=== PATIENT | male | born 2000 | race Caucasian/White ===

== ENCOUNTER 2024-06-19 17:36 | Emergency (ER) | payer BC, SELFPAY ==
[2024-06-19] VITALS (14 sets, daily range): BP systolic 112–133; BP diastolic 67–74; PULSE 62–76; RESP 12–20; TEMP 36.9; O2SAT 96–100
--- NOTE | ~2024-06-19 | XR_ITS ---
XR chest 2V Ordering provider: López Conway MD History: 24 years Male with . chest pain x 3 days . Comparison: None. FINDINGS: MEDIASTINUM: The cardiac silhouette is not enlarged. LUNGS: No infiltrates, effusions or pneumothorax. OTHER: No free air under the diaphragm. IMPRESSION: No acute cardiopulmonary pathology. Reviewed, dictated and finalized at location A.
--- NOTE | 2024-06-19 17:40 | ECG_ITS ---
Test Date: 2024-06-19 17:58:57 Measurements Intervals [place] Rate: 67 P: 38 PA: 141 QRS: 46 QRSD: 99 T: -27 QT: 322 QTc: 340 Interpretive Statements SINUS RHYTHM RSR' IN V1 OR V2, PROBABLY NORMAL VARIANT NONSPECIFIC T-WAVE ABNORMALITY No previous ECG available for comparison Electronically Signed On 06-20-2024 10:46:51 CDT by Donis Purcell M.D.
[2024-06-19 18:16] LABS: Basophils Percent Auto 0.2 % (0.2-1.2); Eosinophils Percent Auto 0.5 % (0-4.4); Hematocrit 49.2 % (42.0-52.0); Hemoglobin 16.6 g/dL (14.0-18.0); Immature Granulocyte Absolute 0.03 K/mm3 (0.00-0.031); Immature Granulocyte Percent A 0.4 % (0-0.5); Lymphocytes Absolute Auto 1.73 K/mm3 (0.9-3.2); Lymphocytes Percent Auto 20.7 % (18.3-44.2); Mean Corpuscular HGB Conc 33.7 g/dl (32-36); Mean Corpuscular Hemoglobin 29.6 pg (26-34); Mean Corpuscular Volume 87.9 fl (80-100); Monocytes Absolute Auto 0.5 K/mm3 (0.1-0.6); Monocytes Percent Auto 5.9 % (2.6-8.5); Neutrophils Percent Auto 72.3 % (45.5-73.1); Platelet Count Result 255 k/mm3 (150-375); Red Cell Distribution Width 13.6 % (11.5-14.5); White Blood Count 8.3 K/mm3 (4.5-10.0)
[2024-06-19 18:26] LABS: Alanine Aminotransferase 43 U/L (6-50); Albumin Level 4.6 g/dL (3.5-5.1); Alkaline Phosphatase 64 U/L (38-126); Anion Gap 7 mmol/L (4-12); Aspartate Amino Transferase 29 U/L (17-59); Bilirubin,Total 0.5 mg/dL (0.2-1.3); Blood Urea Nitrogen 15 mg/dL (9-20); Calcium 9.1 mg/dL (8.4-10.2); Carbon Dioxide 30 mmol/L (22-30); Chloride 100 mmol/L (98-107); Estimated CRCL calculation 96 ml/min; Estimated Glomerular Filt Rate > 60; Glucose 114 mg/dL (65-110); Lipase 42 U/L (23-300); Sodium 137 mmol/L (137-145)
[2024-06-19 18:27] LABS: Prothrombin Time 14.1 Seconds (11.1-14.7)
[2024-06-19 18:28] LABS: Partial Thromboplastin Time 31.1 Seconds (22.3-36.8)
[2024-06-19 18:38] LABS: Troponin I < 0.012 ng/mL (0.000-0.034)
--- NOTE | 2024-06-19 19:02 | ED_ITS ---
HPI - Chest Pain General Chief Complaint: Chest Pain Stated Complaint: Chest pain x 3 days, seen at [facility]. Time Seen by Provider: 06/19/24 18:37 Source: patient and family Mode of arrival: ambulatory Limitations: no limitations History of Present Illness HPI narrative: 24-year-old here with the complaints of midsternal chest pain which started 2 days ago. Patient also states that his left arm was numb she which resolved now has pain in the midst sternal area nonradiating. He denies any shortness of breath history. He denies any cough, fever or chills. Patient states that he has heart problems but has never followed with any live ammunition inspector. Onset (ago): day(s) (2) Timing of current episode: constant Onset: during rest Pain location: other (Mid chest) Pain radiation: none Severity: moderate Quality: tightness Relieving factors: nothing Exacerbating factors: nothing Treatment prior to arrival: none Risk Factors Coronary artery disease risk factors: none Thoracic aortic dissection risk factors: none Related Data Allergies Allergy/AdvReac Type Severity Reaction Status Date / Time No Known Allergies Allergy Verified 06/19/24 17:38 Review of Systems 2 Review of Systems: All systems reviewed & are unremarkable except as noted in HPI and below Constitutional: Constitutional: Reports no additional constitutional complaints Eyes: Eyes: Reports no additional eye complaints ENT: Reports system reviewed and no additional complaints, except as documented Cardiovascular: Cardiovascular: Reports as per HPI Respiratory: Respiratory: Reports as per HPI Gastrointestinal: Gastrointestinal: Reports as per HPI Genitourinary: Genitourinary: Reports no additional male genitourinary complaints Musculoskeletal: Musculoskeletal: Reports no additional musculoskeletal complaints Neurologic: Reports system reviewed and no additional complaints, except as documented Exam 2 Narrative: GENERAL: Well-appearing, well-nourished, and in no acute distress. HEAD: Normocephalic, atraumatic. EYES: PERRLA and EOMI. ENT: Nares clear, no rhinorrhea or epistaxis. Mucous membranes moist. NECK: Supple. CHEST: Clear to auscultation. No respiratory distress. HEART: Regular rate and rhythm. No murmur heard. Normal peripheral pulses. ABDOMEN: Soft, nontender, nondistended, normal active bowel sounds. EXTREMITIES: Normal range of motion. No edema. SKIN: Warm, dry, no rash. NEURO: No focal deficits. Alert and oriented x3. PSYCH: Normal mood and affect. Course Course Emergency Course: Patient comfortably resting on the bed in no discomfort informed him about his EKG and cardiac enzymes. Recommended him to follow up with the live ammunition inspector on outpatient basis. Vital Signs Vital signs: Vital Signs Temperature 36.9 C 06/19/24 18:14 Pulse Rate 63 06/19/24 18:14 Respiratory Rate 16 06/19/24 18:14 Blood Pressure 133/67 06/19/24 18:14 Pulse Oximetry 100 06/19/24 18:14 Temperature 36.9 C 06/19/24 18:14 Pulse Rate 62 06/19/24 20:50 Respiratory Rate 14 06/19/24 20:48 Blood Pressure 112/71 06/19/24 20:48 Pulse Oximetry 100 06/19/24 20:48 Oxygen Delivery Room Air 06/19/24 20:47 MDM - Chest Pain Differential Diagnosis Differential diagnosis: Likely pneumothorax, stable angina, costochondritis and chest pain Medical Records Data Attestation: I reviewed the patient's medical records. Lab Data Attestation: I reviewed the patient's lab results. 06/19/24 18:07 06/19/24 18:07 Labs: Lab Results 06/19/24 06/19/24 Range/Units 18:07 20:49 WBC 8.3 (4.5-10.0) K/mm3 RBC 5.60 (4.6-6.20) M/mm3 Hgb 16.6 (14.0-18.0) g/dL Hct 49.2 (42.0-52.0) % MCV 87.9 (80-100) fl MCH 29.6 (26-34) pg MCHC 33.7 (32-36) g/dl RDW 13.6 (11.5-14.5) % Plt Count 255 (150-375) k/mm3 MPV 9.0 (7.4-10.4) fl Immature Gran % (Auto) 0.4 (0-0.5) % Neut % (Auto) 72.3 (45.5-73.1) % Lymph % (Auto) 20.7 (18.3-44.2) % [place] % (Auto) 5.9 (2.6-8.5) % Eos % (Auto) 0.5 (0-4.4) % Baso % (Auto) 0.2 (0.2-1.2) % Lymph # (Auto) 1.73 (0.9-3.2) K/mm3 Barn[place] # (Auto) 0.5 (0.1-0.6) K/mm3 Eos # (Auto) 0.0 (0-0.3) K/mm3 Baso # (Auto) 0.0 (0.0-0.1) K/mm3 Abs Immat Gran (auto) 0.03 (0.00-0.031) K/mm3 Absolute Neuts (auto) 6.0 (1.3-6.7) K/mm3 Absolute Nucleated RBC 0.000 (0.0-0.012) K/mm3 Nucleated RBC % 0.0 (0.0-0.2) % PT 14.1 (11.1-14.7) Seconds INR 1.0 APTT 31.1 (22.3-36.8) Seconds Sodium 137 (137-145) mmol/L Potassium 4.0 (3.4-5.0) mmol/L Chloride 100 (98-107) mmol/L Carbon Dioxide 30 (22-30) mmol/L Anion Gap 7 (4-12) mmol/L BUN 15 (9-20) mg/dL Creatinine 1.02 (0.7-1.3) mg/dL Estim Creat Clear Calc 96 ml/min Estimated GFR > 60 (59 - ) Glucose 114 H (65-110) mg/dL Calcium 9.1 (8.4-10.2) mg/dL Total Bilirubin 0.5 (0.2-1.3) mg/dL AST 29 (17-59) U/L ALT 43 (6-50) U/L Alkaline Phosphatase 64 (38-126) U/L Troponin I < 0.012 < 0.012 (0.000-0.034) ng/mL Total Protein 7.0 (6.3-8.2) g/dL Albumin 4.6 (3.5-5.1) g/dL Lipase 42 (23-300) U/L Imaging Data Radiologist's impression: ITS Impressions Chest X-Ray 06/19/24 18:56 IMPRESSION: No acute cardiopulmonary pathology. ECG Data EKG #1: ECG completion date: 06/19/24 ECG completion time: 17:58 EKG Interpretation: normal rate (67), sinus rhythm, no ectopy, non- specific ST changes, normal QRS and NL axis Discharge Plan Discharge Clinical Impression: Chest pain Qualifiers: Chest pain type: unspecified Qualified Code(s): R07.9 - Chest pain, unspecified Patient Disposition: Home, Self-Care Condition: Stable Instructions: Chest Pain (ED) Patient Language: Syrian Follow-up/Referrals: Hector Fisher DO [Physician] - Alexander Shi MD [Physician] - Time of Disposition: 21:23
--- OUTSIDE RECORDS SUMMARY | 2024-06-19 19:17 | XMS_ITS | Clinical Summary ---
Author Organization [facility] Address [address] [place] [address] Care Team Providers Care Molder Wax Ball Name Role Phone Alexander Shi MD Primary Care Provider [phone] Source Comments [facility],non-owned Affiliates and Associated Physician Practices is amultiple site organization consisting of ambulatory clinics and hospital sitesin [place], [place], [place] and [place]. This disclosure is being madepursuant to the Care Everywhere program and may not contain all information available regarding this patient. Last updated 17.[facility] Medications * Be aware that medications may not be up to date on this document. Alwaysverify current medications with the patient. Medication Sig Dispensed Refills Start Date End Date Status methylphenidate CR 54 MG tablet Take 54 mg by mouth every morning Active cloNIDine (CATAPRES) 0.1 MG tablet Take 0.1 mg by mouth 2 times daily Active fluvoxaMINE (LUVOX) 50 MG tablet Take 50 mg by mouth at bedtime Active Social History Tobacco Use Types Packs/Day Years Used Date Smoking Tobacco: Never Sex and Gender Information Value Date Recorded Sex Assigned at Not on file Gender Identity Not on file Sexual Orientation Not on file Last Filed Vital Signs Vital Sign Reading Time Taken Comments Blood Pressure 102/78 01/20/2016 3:49 PM CDT Pulse 80 01/20/2016 3:49 PM CDT Temperature - - Respiratory Rate 20 01/20/2016 3:49 PM CDT Oxygen Saturation - - Inhaled Oxygen Concentration - - Weight 53.9 kg (118 lb 13.3 oz) 01/20/2016 3:49 PM CDT Height 151.6 cm (4' 11.69 ) 01/20/2016 3:49 PM C DT Body Mass Index 23.45 01/20/2016 3:49 PM CDT Plan of Treatment Health Maintenance Due Date Last Done Comments HIV SCREENING 02/02/2016 HPV VACCINE (1 - Male 3-dose series) 02/02/2016 MENINGOCOCCAL (Group B) VACC INE SHARED DECISION-MAKING (1 of 2 - Standard) 2017 HEPATITIS C SCREENING 01/28/2019 DTAP/TDAP/TD VACCINES (1 - Tdap) 02/02/2020 HEPATITIS B VACCINE (1 of 3 - 19+ 3-dose series) 02/02/2020 COVID-19 VACCINE (1 - 2023-2 5 season) 2023 INFLUENZA VACCINE (#1) 2023 DEPRESSION SCREENING 03/27/2024 ZOSTER VACCINE (1 of 2) 2051 HIB VACCINE Aged Out No longer eligi ble based on patient's age to complete this topic MENINGOCOCCAL GROUPS A/C/Y/W VACCINE Aged Out No longer eligible b ased on patient's age to complete this topic PNEUMOCOCCAL VACCINE Aged Out No long er eligible based on patient's age to complete this topic Care Teams Molder Wax Ball Relationship Specialty Start Date End Date Alexander Shi MD [address] [address] PCP - General Pediatrics 11/23/15
--- OUTSIDE RECORDS SUMMARY | 2024-06-19 19:17 | XMS_ITS | Clinical Summary ---
Author Organization [facility] Address [facility] [place] [address] Care Team Providers Care Corporate Relations Manager Name Role Phone Esme Akhtar MD Primary Care Provider [phone] Allergies No known active allergies Medications triamcinolone 0.5 % creamIndications: Acute maculopapular rash,Acute contact dermatitis Apply sparingly to affected area(s) twice daily. 15 g 10/08/19 20 Active pantoprazole EC 40 MG tabletIndications :Hematemesis with nausea Take 1 tablet (40 mg total) by mouth 2 (two) times daily. 20 tablet 1 12/24/19 21 025 Discontinued Active Problems Problem Noted Date Diagnosed Date Ingrown nail of great toe of right foot 09/24/19 22 Encounters Date Type Department Care Team Description 06/18/2024 10:30 AM CDT - 06/18/2024 11:47 AM CDT Emergency [facility] Emergency Room [id number] [place] [address] Fiona Cabrera MD Chest Pain Discharge Disposition: Home or Self Care (Routine Discharge) 06/18/2024 Travel from Last 3 Months Immunizations Name Administration Dates Next Due Dtap (Generic) 11/09/2006, 3,2001,05/25,2001 Hepatitis A (Generic) 10/20/2008,11/09/2006 Hepatitis B (Generic Peds) 2001,2001 ,2001 Hib (Generic) 10/16/2003, 2,2001,11/2001 MENINGOCOCCAL A C Y&W-135 oligosaccharide (MENVEO) 01/04/2013 MMR (Generic) 11/09/2006,06/03/2002 Meningococcal (Menactra) 12/17/2018 Polio Ipv (Generic) 11/09/2006, 2,2001,11/2001 Td (Decavac) 11/29/2019 Td, Adsorbed, Preservative F ree, Adult Use, Lf Unspecified 11/29/2019 Tdap (Generic) 01/04/2013 Varicella (Generic) 11/09/2006,06/03/2002 Family History Medical History Relation Comments Cancer Mother Hypertension Paternal Grandfather Relation Status Comments Mother Paternal Grandfather Social History Tobacco Use Types Packs/Day Years Used Date Smoking Tobacco: Never Smokeless Tobacco: Never Tobacco Cessation:Counseling Given: Not Answered Alcohol Use Standard Drinks/Week Comments Not Currently 0 (1 standard drink = 0.6 oz pur e alcohol) AUDIT-C Answer Date Recorded Frequency of Alcohol Consumption Never 11/05/2018 Average Number of Drinks Not on file Frequency of Binge Drinking Not on file 10/25 PHQ-2 Answer Date Recorded PHQ-2 Score - If the patient scores above 3, please move on to questions 3-9 0 12/29/2021 Sex and Gender Information Value Date Recorded Sex Assigned at Not on file Legal Sex Male 8:30 PM CDT Gender Identity Not on file Sexual Orientation Not on file Last Filed Vital Signs Vital Sign Reading Time Taken Comments Blood Pressure 132/83 06/18/2024 11:44 AM CDT Pulse 78 06/18/2024 11:44 AM CDT Temperature 36.4 C (97.6 F) 06/18/2024 11:44 AM CDT Respiratory Rate 22 06/18/2024 11:44 AM CDT Oxygen Saturation 98% 06/18/2024 11:44 AM CDT Inhaled Oxygen Concentration - - Weight 79.8 kg (176 lb) 06/18/2024 10:36 AM CDT Height 175.3 cm (5' 9 ) 06/18/2024 10:36 AM CDT Body Mass Index 25.99 06/18/2024 10:36 AM CDT Plan of Treatment Health Maintenance Due Date Last Done Comments HPV Vaccines (1 - Male 3-dose series) 02/02/2016 Meningococcal B Vaccine (1 of 2 - Standard) 2017 Hepatitis C 2019 Annual Physical 12/18/2019 12/17/2018 COVID-19 Vaccine (1 - season) 2023 Influenza Adult (#1) 2023 PHQ-2 (Physician [place]) 03/27/2024 DTaP, Tdap and Td Vaccines (9 - Td or Tdap) 11/28/2029 11/29/2019, 11/29/2019, 01/04/2013, Additional history exists Hepatitis B Vaccines Completed 2001, 2001, 2001 Meningococcal Vaccine Completed 12/17/2018, 013 Pneumococcal Vaccine: Pediatrics (0 to 5 Years) and At-Risk Patients (6 to 64 Years) Aged Out No longer eligible based on patient's age to complete this topic RSV Immunizations Under 20 Months Aged Out No longer eligible based on patient's age to complete this topic Procedures Procedure Name Priority Date/Time Associated Diagnosis Comments XR CHEST PORTABLE STAT 06/18/2024 11:14 AM CDT TROPONIN, QUANT STAT 06/18/2024 10:47 AM CDT CBC W/DIFF AUTOMATED STAT 06/18/2024 10:47 AM CDT COMPREHENSIVE METABOLIC PANEL STAT 06/18/2024 10:47 AM CDT ECG 12-LEAD STAT 06/18/2024 10:35 AM CDT Procedure Note - 06/18/2024 10:35 AM CDTThis note is in progress. [facility] Test Date: 2024-06-18 Pat Name: ZEB CLAUDIO Department: 85 Room: EXAM 404 Gender: Male Motocross Racer: : 2000 Requested By: FIONA CABRERA Order Number: [id number] Reading MD: Measurements Intervals [place] Rate: 95 P: 51 VT: 151 QRS: 46 QRSD: 107 T: -12 QT: 321 QTc: 404 Interpretive Statements SINUS RHYTHM NONSPECIFIC ST & T-WAVE ABNORMALITY No previous ECG available for comparison from Last 3 Months Results * XR CHEST PORTABLE (06/18/2024 11:14 AM CDT) Anatomical Region Laterality Modality Chest Radiographic Kaye ging 06/18/2024 11:2 0 AM CDT Impressions 06/18/2024 11:21 AM CDT IMPRESSION: 1) No radiographic evidence of active disease the chest. Ordered By: FIONA CABRERA Interpreted By: William Roberson MD, 06/18/2024 11:20 AM Narrative 06/18/2024 11:21 [place] [address] Examination: XR CHEST PORTABLE Exam time: 06/18/2024 10:51 AM Clinical history: Chest pain Comparison: 03/20/2023 Technique: AP chest Findings: Heart size within normal limits. Pulmonary vasculature unremarkable. No acute pulmonary parenchymal opacity. No pleural effusion. No hyperinflation. Procedure Note William Roberson MD - 06/18/2024 [place] [address] Examination: XR CHEST PORTABLE Exam time: 06/18/2024 10:51 AM Clinical history: Chest pain Comparison: 03/20/2023 Technique: AP chest Findings: Heart size within normal limits. Pulmonary vasculatureunremarkable. No acute pulmonary parenchymal opacity. No pleural effusion.No hyperinflation. IMPRESSION: 1) No radiographic evidence of active disease the chest. Ordered By: FIONA CABRERA Interpreted By: William Roberson MD, 06/18/2024 11:20 AM us Fiona Cabrera MD GENERAL IMAGING Final Result * (ABNORMAL) COMPREHENSIVE METABOLIC PANEL (06/18/2024 10:47 AM CDT) GLUCOSE 100(H) 70 - 99 MG/DL 06/18/2024 11:09 AM [facility] BUN 10 7 - 18 MG/DL 06/18/2024 11:09 AM [facility] CREATININE S/P/B 1.06 0.7 - 1.3 MG/DL 06/18/2024 11:09 AM [facility] SODIUM S/P/B 141 136 - 145 MMOL/L 06/18/2024 11:09 AM [facility] POTASSIUM S/P/B 4.0 3.5 - 5.1 MMOL/L 06/18/2024 11:09 AM [facility] CHLORIDE S/P/B 102 100 - 108 MMOL/L 06/18/2024 11:09 AM [facility] CO2 33.5(H) 21 - 32 MMOL/L 06/18/2024 11:09 AM [facility] CALCIUM S/P/B 9.4 8.5 - 10.1 MG/DL 06/18/2024 11:09 AM [facility] BILIRUBIN TOTAL S/P/B 0.6 0.2 - 1.2 MG/DL 06/18/2024 11:09 AM [facility] TOTAL PROTEIN S/P/B 7.8 6.4 - 8.2 G/DL 06/18/2024 11:09 AM [facility] ALBUMIN S/P/B 4.5 3.4 - 5.0 G/DL 06/18/2024 11:09 AM [facility] AST 20 15 - 37 U/L 06/18/2024 11:09 AM [facility] ALT 56 16 - 60 U/L 06/18/2024 11:09 AM CDT [facility] ALKALINE PHOSPHATASE S/P/B 77 50 - 136 U/L 06/18/2024 11:09 AM CDT [facility] ANION GAP 5.5 5 - 15 MMOL/L 06/18/2024 11:09 AM CDT [facility] BUN CREATININE RATIO 9.4 6 - 26 06/18/2024 11:09 AM T [facility] A/G RATIO 1.4 1.0 - 2.0 RATIO 06/18/2024 11:09 AM CDT [facility] GFR ESTIMATE >90 >90 ML/MIN/1.7 3 M2 06/18/2024 11:09 AM T [facility] Comment: NOTE: eGFR is not calculated for patients <18 years of age. This is an estimated GFR calculation using the new CKD EPI creatinine equation without race and so does not require a correction factor for race. This estimated GFR should not be used for calculating drug doses. 06/18/2024 10:4 7 AM CDT us Fiona Cabrera MD LABORATORY Final Result [facility] [address] [place] [address], * (ABNORMAL) CBC W/DIFF AUTOMATED (06/18/2024 10:47 AM CDT) WBC 6.08 4.4 - 11.0 x10'3/uL 06/18/2024 10:59 AM CDT [facility] RBC 5.82 4.50 - 5.90 x10'6/uL 06/18/2024 10:59 AM CDT [facility] HGB 17.4 14.0 - 17.5 G/DL 06/18/2024 10:59 AM CDT [facility] HCT 50.5(H) 41.5 - 50.4 % 06/18/2024 10:59 AM CDT [facility] MCV 86.8 80.0 - 96.0 FL 06/18/2024 10:59 AM CDT [facility] MCH 29.9 26.5 - 31.4 PG 06/18/2024 10:59 AM CDT [facility] MCHC 34.5 31.9 - 34.8 G/DL 06/18/2024 10:59 AM CDT [facility] RDW 13.7 12.3 - 14.3 % 06/18/2024 10:59 AM CDT [facility] PLT 262 151 - 353 x10'3/uL 06/18/2024 10:59 AM T [facility] MPV 9.1(L) 9.7 - 11.9 FL 06/18/2024 10:59 AM T [facility] RBC MORPHOLOGY NORMAL 06/18/2024 10:59 AM T [facility] PLT MORPH. NORMAL 06/18/2024 10:59 AM T [facility] WBC MORPHOLOGY NORMAL 06/18/2024 10:59 AM T [facility] LYMPHOCYTES % 20.7 15.8 - 45.0 % 06/18/2024 10:59 AM CDT [facility] NEUTROPHILS % 70.7 42.1 - 71.9 % 06/18/2024 10:59 AM CDT [facility] MONOCYTES % 7.1 5.7 - 12.5 % 06/18/2024 10:59 AM CDT [facility] EOSINOPHILS 0.3 0.0 - 5.6 % 06/18/2024 10:59 AM CDT [facility] BASOPHILS 0.7 0.0 - 1.3 % 06/18/2024 10:59 AM CDT [facility] ABS. NEUTROPHILS 4.30 1.40 - 6.00 x10'3/uL 06/18/2024 10:59 AM CDT [facility] IMMATURE GRANS % 0.5 0.0 - 0.5 % 06/18/2024 10:59 AM CDT [facility] ABS. LYMPHOCYTES 1.26 0.80 - 4.70 x10'3/uL 06/18/2024 10:59 AM CDT [facility] 06/18/2024 10:4 7 AM CDT Fiona Cabrera MD LABORATORY Final Result Performing Organization Address [facility]/ZIP Co de Phone Number [facility] [address] [place] [address], [place] [phone] * TROPONIN, QUANT (06/18/2024 10:47 AM CDT) Pathologist [facility] TROPONIN I HIGH SENSITIVITY 4 0 - 75 ng/L 06/18/2024 11:15 AM CDT [facility] Comment: HIGH DOSES OF BIOTIN, TROPONIN-SPECIFIC AUTOANTIBODIES, AND ANTIBODY THERAPY CONTAINING HAMA MAY INTERFERE WITH THIS TEST RESULT. CORRELATION TO CLINICAL HISTORY AND PRESENTATION RECOMMENDED. 06/18/2024 10:4 7 AM CDT Fiona Cabrera MD LABORATORY Final Result Performing Organization Address City/[facility]/ZIP Co de Phone Number [facility] [address] [place] [address], [place] [phone] from Last 3 Months Insurance [address] [place] [address] * Guarantor: SYSTEM GENERATED Account Type Relation to Patient Date of Phone Billing Address Personal/Family Care Teams Corporate Relations Manager Relationship Specialty [place] [address] [place] [address] PCP - General FAMILY PRACTICE 09/20/21
--- OUTSIDE RECORDS SUMMARY | 2024-06-19 19:17 | XMS_ITS | Encounter Summary ---
Author Organization [facility] Address [facility] [place] [address] Care Team Providers Care Pinking Sewing Machine Operator Name Role Phone Esme Akhtar MD Primary Care Provider [phone] Encounter Details Date Type Department Care Team (Latest Contact Info) Description 06/18/2024 Travel Social History Tobacco Use Types Packs/Day Years Used Date Smoking Tobacco: Never Smokeless Tobacco: Never Alcohol Use Standard Drinks/Week Comments Not Currently 0 (1 standard drink = 0.6 oz pur e alcohol) AUDIT-C Answer Date Recorded Frequency of Alcohol Consumption Never 11/05/2018 Average Number of Drinks Not on file 019 Frequency of Binge Drinking Not on file 10/25 PHQ-2 Answer Date Recorded PHQ-2 Score - If the patient scores above 3, please move on to questions 3-9 0 12/29/2021 Sex and Gender Information Value Date Recorded Sex Assigned at Not on file Legal Sex Male 8:30 PM CDT Gender Identity Not on file Sexual Orientation Not on file documented as of this encounter Plan of Treatment Not on file documented as of this encounter Visit Diagnoses Not on filedocumented in this encounter Additional Health Concerns Assessment Noted Time PHQ-9 Depression Total Score: 0 12/30/19 22 11:58 AM CDT documented as of this encounter Care Teams Pinking Sewing Machine Operator Relationship Specialty Start [place] [address] [place] [address] PCP - General FAMILY PRACTICE 09/20/21 documented as of this encounter
--- OUTSIDE RECORDS SUMMARY | 2024-06-19 19:17 | XMS_ITS | Encounter Summary ---
Author Organization [facility] Address [facility] [place] [address] Care Team Providers Care Foreclosure Home Inspector Name Role Phone Esme Akhtar MD Primary Care Provider [phone] Reason for Visit * Reason Comments Chest Pain Encounter Details Date Type Department Care Team (Late st Contact Info) Description 06/18/2024 10:30 AM CDT - 06/18/2024 11:47 AM CDT Emergency [facility] Emergency Room [id number] [place] [id number] Fiona Cabrera MD [address] [place] [id number] Chest Pain Discharge Disposition: Home or Self Care (Routine Discharge) Social History Tobacco Use Types Packs/Day Years [...] on file documented as of this encounter Last Filed Vital Signs Vital Sign Reading [...] Mass Index 25.99 06/18/2024 10:36 AM CDT documented in this encounter Discharge Instructions * Discharge Instructions* Fiona Cabrera MD - 06/18/2024 11:29 AM CDT Tylenol and ibuprofen for chest pain * Attachments The following attachments cannot be sent through Care Everywhere. * Chest Pain That Is Not Caused by the Heart Discharge Instructions ([place]) documented in this encounter Medications at Time of Discharge triamcinolone 0.5 % creamIndications:[place] maculopapular rash,Acute contact dermatitis Apply sparingly to affected area(s) twice daily. 15 g 10/08/2019 documented as of this encounter ED Notes * Fiona Cabrera MD - 06/18/2024 10:40 AM CDT Emergency Department Note Chief Complaint Chief Complaint Patient presents with Chest Pain History of Present Illness Chest Pain Patient presents to the emergency department with chest discomfort. Started last night and has beenpersistent to this morning. He has not taken anything for the pain prior to arrival. He had similarepisode when he was 20 years old and he had a syncopal episodes associated with it. He denies family history of early cardiac disease. Pain is worse with deep breath and movement. Radiates into his left arm. Also having some tingling of his left arm. Medical History ALLERGIES: Review of patient's allergies indicates: No Known Allergies MEDICATIONS: Prior to Admission medications Medication Sig Start Date End Date Taking? Authorizing Provider triamcinolone 0.5 % cream Apply sparingly to affected area(s) twice daily. 10/08/19 Fernandez Watts MD PAST MEDICAL HISTORY: History reviewed. No pertinent past medical history. PAST SURGICAL HISTORY: History reviewed. No pertinent surgical history. FAMILY HISTORY: Family History Problem Relation Name Age of Onset Cancer Mother Hypertension Paternal Grandfather SOCIAL HISTORY: Social History Tobacco Use Smoking status: Never Smokeless tobacco: Never Vaping Use Vaping status: Every Day Substances: Nicotine Devices: Refillable tank, Pre-filled pod Substance Use Topics Alcohol use: Not Currently Drug use: No Review of Systems ROS negative except for what is documented in the HPI Physical Exam Filed Vitals: 06/18/24 1036 BP: (!) 143/77 Pulse: 85 Resp: 18 Temp: 98.2 ??F (36.8 ??C) TempSrc: Oral SpO2: 99% Weight: 79.8 kg (176 lb) Height: 1.753 m (5' 9 ) Physical Exam Constitutional: Appearance: Normal appearance. HENT: Head: Normocephalic. Nose: Nose normal. Eyes: Extraocular Movements: Extraocular movements intact. Cardiovascular: Rate and Rhythm: Normal rate. Pulmonary: Effort: Pulmonary effort is normal. No respiratory distress. Breath sounds: Normal breath sounds. Musculoskeletal: General: Normal range of motion. Skin: General: Skin is warm and dry. Neurological: General: No focal deficit present. Mental Status: He is alert and oriented to person, place, and time. Psychiatric: Mood and Affect: Mood normal. Behavior: Behavior normal. Diagnostic Studies / Procedures ELECTROCARDIOGRAMS: Results for orders placed or performed during the hospital encounter of 06/18/24 [address] [facility] Test Date: 2024-06-18 Pat Name: ZEB CLAUDIO Department: 85 Room: EXAM 404 Gender: Male Technical Account Representative: : 2000 Requested By: FIONA CABRERA Order Number: [id number] Isaiah MD: Measurements Intervals [place] Rate: 95 P: 51 RI: 151 QRS: 46 QRSD: 107 T: -12 QT: 321 QTc: 404 Interpretive Statements SINUS RHYTHM NONSPECIFIC ST & T-WAVE ABNORMALITY No previous ECG available for comparison LABORATORY STUDIES: Results for orders placed or performed during the hospital encounter of 06/18/24 COMPREHENSIVE METABOLIC PANEL Result Value Ref Range GLUCOSE 100 (H) 70 - 99 MG/DL BUN 10 7 - 18 MG/DL CREATININE S/P/B 1.06 0.7 - 1.3 MG/DL SODIUM S/P/B 141 136 - 145 MMOL/L POTASSIUM S/P/B 4.0 3.5 - 5.1 MMOL/L CHLORIDE S/P/B 102 100 - 108 MMOL/L CO2 33.5 (H) 21 - 32 MMOL/L CALCIUM S/P/B 9.4 8.5 - 10.1 MG/DL BILIRUBIN TOTAL S/P/B 0.6 0.2 - 1.2 MG/DL TOTAL PROTEIN S/P/B 7.8 6.4 - 8.2 G/DL ALBUMIN S/P/B 4.5 3.4 - 5.0 G/DL AST 20 15 - 37 U/L ALT 56 16 - 60 U/L ALKALINE PHOSPHATASE S/P/B 77 50 - 136 U/L ANION GAP 5.5 5 - 15 MMOL/L BUN CREATININE RATIO 9.4 6 - 26 A/G RATIO 1.4 1.0 - 2.0 RATIO GFR ESTIMATE >90 >90 ML/MIN/1.73 M2 CBC W/DIFF AUTOMATED Result Value Ref Range WBC 6.08 4.4 - 11.0 x10'3/uL RBC 5.82 4.50 - 5.90 x10'6/uL HGB 17.4 14.0 - 17.5 G/DL HCT 50.5 (H) 41.5 - 50.4 % MCV 86.8 80.0 - 96.0 FL MCH 29.9 26.5 - 31.4 PG MCHC 34.5 31.9 - 34.8 G/DL RDW 13.7 12.3 - 14.3 % PLT 262 151 - 353 x10'3/uL MPV 9.1 (L) 9.7 - 11.9 FL RBC MORPHOLOGY NORMAL PLT MORPH. NORMAL WBC MORPHOLOGY NORMAL LYMPHOCYTES % 20.7 15.8 - 45.0 % NEUTROPHILS % 70.7 42.1 - 71.9 % MONOCYTES % 7.1 5.7 - 12.5 % EOSINOPHILS 0.3 0.0 - 5.6 % BASOPHILS 0.7 0.0 - 1.3 % ABS. NEUTROPHILS 4.30 1.40 - 6.00 x10'3/uL IMMATURE GRANS % 0.5 0.0 - 0.5 % ABS. LYMPHOCYTES 1.26 0.80 - 4.70 x10'3/uL TROPONIN, QUANT Result Value Ref Range TROPONIN I HIGH SENSITIVITY 4 0 - 75 ng/L IMAGING STUDIES XR CHEST PORTABLE Final Result by User, [email or web address] (06/18 112) [facility] [address] [place] [address] Examination: XR CHEST PORTABLE Exam time: 06/18/2024 10:51 AM Clinical history: Chest pain Comparison: 03/20/2023 Technique: AP chest Findings: Heart size within normal limits. Pulmonary vasculature unremarkable. No acute pulmonary parenchymal opacity. No pleural effusion. No hyperinflation. IMPRESSION: 1) No radiographic evidence of active disease the chest. Ordered By: FIONA CABRERA Interpreted By: William Roberson MD, 06/18/2024 11:20 AM ED Course / Medical Decision Making Medical Decision Making Amount and/or Complexity of Data Reviewed Labs: ordered. Radiology: ordered. ECG/medicine tests: ordered. ED Course as of 06/18/24 113MonJun 18, 2024 1128 Labs ordered and independently reviewed. All grossly unremarkable. Initial EKG reviewed and sinus rhythm rate [address] changes [MS] 1128 Chest x-ray negative for infiltrates and effusions or pneumothorax. Vital signs stable. SANTY score negative. Will DC to home [MS] ED Course User Index [MS] Fiona Cabrera MD Rhythm strip ordered and interpreted: NSR, Rate 80, No ectopy Medications ketorolac (TORADOL) injection 30 mg (30 mg Intravenous Given 06/18/24 1053) Clinical Impression Chest pain, unspecified type (Primary) Current Discharge Medication List Disposition: Discharge Follow-[place]: [place] [address] [facility] [address] Schedule an appointment as soon as possible for a visit in 3 days FIONA CABRERA MD 06/18/2024 Fiona Cabrera MD 06/18/24 1130 * Rhina Olivia RN - 06/18/2024 10:33 AM CDT PT ambulatory to ED with reports of chest pain mainly with activity that began yesterday. Pt reports CP comes and goes, left sided, throbbing. Pt reports left arm was numb yesterday but has improved since. SOB with activity. Pt currently reports 3/10 pain. Reports e-cigarette use, takes testosterone, similar feeling of CP when he was 20 y.o. documented in this encounter Plan of Treatment Pending Results Name Type Priority Associated Diagnoses Date /Time ECG 12 lead EKG-NonRad STAT 06/18/2024 10 :35 AM CDT documented as of this encounter Procedures Procedure Name Priority Date/Time Associated Diagnosis Comments XR CHEST PORTABLE STAT 06/18/2024 11:14 AM CDT COMPREHENSIVE METABOLIC PANEL STAT 06/18/2024 10:47 AM CDT CBC W/DIFF AUTOMATED STAT 06/18/2024 10:47 AM CDT TROPONIN, QUANT STAT 06/18/2024 10:47 AM CDT ECG 12-LEAD STAT 06/18/2024 10:35 AM CDT Procedure Note - 06/18/2024 10:35 AM CDTThis note is in progress. [facility] Test Date: 2024-06-18 Pat Name: ZEB CLAUDIO Department: 85 Room: EXAM 404 Gender: Male Technical Account Representative: : 2000 Requested By: FIONA CABRERA Order Number: [id number] Reading MD: Measurements Intervals [place] Rate: 95 P: 51 RI: 151 QRS: 46 QRSD: 107 T: -12 QT: 321 QTc: 404 Interpretive Statements SINUS RHYTHM NONSPECIFIC ST & T-WAVE ABNORMALITY No previous ECG available for comparison documented in this encounter Results * XR CHEST PORTABLE (06/18/2024 11:14 AM CDT) Anatomical Region Laterality Modality Chest Radiographic Kaye ging 06/18/2024 11:2 0 AM CDT Impressions 06/18/2024 11:21 AM CDT IMPRESSION: 1) No radiographic evidence of active disease the chest. Ordered By: FIONA CABRERA Interpreted By: William Roberson MD, 06/18/2024 11:20 AM Narrative 06/18/2024 11:21 AM CDT [address] [place] [address] Examination: XR CHEST PORTABLE Exam time: 06/18/2024 10:51 AM Clinical history: Chest pain Comparison: 03/20/2023 Technique: AP chest Findings: Heart size within normal limits. Pulmonary vasculature unremarkable. No acute pulmonary parenchymal opacity. No pleural effusion. No hyperinflation. Procedure Note William Roberson MD - 06/18/[address] [place] [address] Examination: XR CHEST PORTABLE Exam time: 06/18/2024 10:51 AM Clinical history: Chest pain Comparison: 03/20/2023 Technique: AP chest Findings: Heart size within normal limits. Pulmonary vasculatureunremarkable. No acute pulmonary parenchymal opacity. No pleural effusion.No hyperinflation. IMPRESSION: 1) No radiographic evidence of active disease the chest. Ordered By: FIONA CABRERA Interpreted By: William Roberson MD, 06/18/2024 11:20 AM Fiona Cabrera MD GENERAL IMAGING Final Result * TROPONIN, QUANT (06/18/2024 10:47 AM CDT) TROPONIN I HIGH SENSITIVITY 4 0 - 75 ng/L 06/18/2024 11:15 AM CDT [facility] Comment: HIGH DOSES OF BIOTIN, TROPONIN-SPECIFIC AUTOANTIBODIES, AND ANTIBODY THERAPY CONTAINING HAMA MAY INTERFERE WITH THIS TEST RESULT. CORRELATION TO CLINICAL HISTORY AND PRESENTATION RECOMMENDED. 06/18/2024 10:4 7 AM CDT Fiona Cabrera MD LABORATORY Final Result [facility] [address] [place] [address], * (ABNORMAL) CBC W/DIFF AUTOMATED (06/18/2024 10:47 AM CDT) WBC 6.08 4.4 - 11.0 x10'3/uL 06/18/2024 10:59 AM CDT [facility] RBC 5.82 4.50 - 5.90 x10'6/uL 06/18/2024 10:59 AM CDT [facility] HGB 17.4 14.0 - 17.5 G/DL 06/18/2024 10:59 AM CDT [facility] HCT 50.5(H) 41.5 - 50.4 % 06/18/2024 10:59 AM CDT [facility] MCV 86.8 80.0 - 96.0 FL 06/18/2024 10:59 AM CDT [facility] MCH 29.9 26.5 - 31.4 PG 06/18/2024 10:59 AM CDT [facility] MCHC 34.5 31.9 - 34.8 G/DL 06/18/2024 10:59 AM CDT [facility] RDW 13.7 12.3 - 14.3 % 06/18/2024 10:59 AM CDT [facility] PLT 262 151 - 353 x10'3/uL 06/18/2024 10:59 AM CDT [facility] MPV 9.1(L) 9.7 - 11.9 FL 06/18/2024 10:59 AM CDT [facility] RBC MORPHOLOGY NORMAL 06/18/2024 10:59 AM CDT [facility] PLT MORPH. NORMAL 06/18/2024 10:59 AM CDT [facility] WBC MORPHOLOGY NORMAL 06/18/2024 10:59 AM CDT [facility] LYMPHOCYTES % 20.7 15.8 - 45.0 % 06/18/2024 10:59 AM CDT [facility] NEUTROPHILS % 70.7 42.1 - 71.9 % 06/18/2024 10:59 AM CDT [facility] MONOCYTES % 7.1 5.7 - 12.5 % 06/18/2024 10:59 AM CDT [facility] EOSINOPHILS 0.3 0.0 - 5.6 % 06/18/2024 10:59 AM CDT [facility] BASOPHILS 0.7 0.0 - 1.3 % 06/18/2024 10:59 AM CDT [facility] ABS. NEUTROPHILS 4.30 1.40 - 6.00 x10'3/uL 06/18/2024 10:59 AM CDT [facility] IMMATURE GRANS % 0.5 0.0 - 0.5 % 06/18/2024 10:59 AM CDT [facility] ABS. LYMPHOCYTES 1.26 0.80 - 4.70 x10'3/uL 06/18/2024 10:59 AM CDT [facility] 06/18/2024 10:4 7 AM CDT Fiona Cabrera MD LABORATORY Final Result [facility] [address] [place] [address], * (ABNORMAL) COMPREHENSIVE METABOLIC PANEL (06/18/2024 10:47 AM CDT) [facility] GLUCOSE 100(H) 70 - 99 MG/DL 06/18/2024 11:09 AM CDT [facility] BUN 10 7 - 18 MG/DL 06/18/2024 11:09 AM CDT [facility] CREATININE S/P/B 1.06 0.7 - 1.3 MG/DL 06/18/2024 11:09 AM T [facility] SODIUM S/P/B 141 136 - 145 MMOL/L 06/18/2024 11:09 AM CDT [facility] POTASSIUM S/P/B 4.0 3.5 - 5.1 MMOL/L 06/18/2024 11:09 AM CDT [facility] CHLORIDE S/P/B 102 100 - 108 MMOL/L 06/18/2024 11:09 AM T [facility] CO2 33.5(H) 21 - 32 MMOL/L 06/18/2024 11:09 AM CDT [facility] CALCIUM S/P/B 9.4 8.5 - 10.1 MG/DL 06/18/2024 11:09 AM CDT [facility] BILIRUBIN TOTAL S/P/B 0.6 0.2 - 1.2 MG/DL 06/18/2024 11:09 AM CDT [facility] TOTAL PROTEIN S/P/B 7.8 6.4 - 8.2 G/DL 06/18/2024 11:09 AM CDT [facility] ALBUMIN S/P/B 4.5 3.4 - 5.0 G/DL 06/18/2024 11:09 AM CDT [facility] AST 20 15 - 37 U/L 06/18/2024 11:09 AM T [facility] ALT 56 16 - 60 U/L 06/18/2024 11:09 AM T [facility] ALKALINE PHOSPHATASE S/P/B 77 50 - 136 U/L 06/18/2024 11:09 AM T [facility] ANION GAP 5.5 5 - 15 MMOL/L 06/18/2024 11:09 AM T [facility] BUN CREATININE RATIO 9.4 6 - 26 06/18/2024 11:[address] [facility] A/G RATIO 1.4 1.0 - 2.0 RATIO 06/18/2024 11:[address] [facility] GFR ESTIMATE >90 >90 ML/MIN/1.7 3 M2 06/18/2024 11:[address] [facility] Comment: NOTE: eGFR is not calculated for patients <18 years of age. This is an estimated GFR calculation using the new CKD EPI creatinine equation without race and so does not require a correction factor for race. This estimated GFR should not be used for calculating drug doses. 06/18/2024 10:4 7 AM CDT Fiona Cabrera MD LABORATORY Final Result [facility] [address] [place] [address], documented in this encounter Visit Diagnoses Diagnosis Chest pain, unspecified type- Primary documented in this encounter Administered Medications Inactive Administered Medications - up to 3 most recent administrations Medication Order MAR Action Action Date Dose Rate Site ketorolac (TORADOL) injection 30 mg 30 mg, Intravenous, Once, 1 dose, On Mon06/18/24 at 1045, For IV administration, give over 15 seconds. Given 06/18/2024 10:53 AM CDT 30 mg documented in this encounter Active and Recently Administered Medications Times are shown in CDT. Scheduled Medication Order 06/16/2024 06/17/2024 06/18/2024 ketorolac (TORADOL) injection 30 mg (COMPLETED) 30 mg, Intravenous, Once, 1 dose, On Mon06/18/24 at 1045, For IV administration, give over 15 seconds. 1053 (Given - Provid er: Rhina Olivia RN) documented in this encounter Additional Health Concerns Assessment Noted Time PHQ-9 Depression Total Score: 0 12/30/19 11:58 AM CDT documented as of this encounter Care Teams Foreclosure Home Inspector Relationship Specialty Start [place] [address] [facility] [place] [id number] PCP - General FAMILY PRACTICE 09/20/21 documented as of this encounter
[2024-06-19 21:18] LABS: Troponin I < 0.012 ng/mL (0.000-0.034)
--- NOTE | 2024-06-19 21:21 | ECG_ITS ---
Test Date: 2024-06-19 21:14:44 Measurements Intervals [place] Rate: 62 P: 28 NM: 154 QRS: 34 QRSD: 101 T: -15 QT: 340 QTc: 348 Interpretive Statements SINUS RHYTHM NONSPECIFIC T-WAVE ABNORMALITY Compared to ECG 06/19/2024 17:58:57 No significant changes Electronically Signed On 06-20-2024 10:51:46 CDT by Donis Purcell M.D.
== END 2024-06-19 21:30 | disposition home or self-care (01) ==
PROVIDERS: Student in an Organized Health Care Education/Training Program; Emergency Provider Family Medicine
DX: R07.2 Precordial pain (principal); R94.31 Abnormal electrocardiogram [ECG] [EKG]
CPT/HCPCS: 36415; 71046; 80053; 83690; 84484; 85025; 85610; 85730; 93005; 99284